=== PATIENT | female | born 1950 | race Caucasian/White ===

== ENCOUNTER → 2022-05-23 | Emergency (ER) | payer BC ==
[~2022-05-23] VITALS: Ht 172.7 cm; Wt 74.8 kg
[~2022-05-23] MED LIST: ACETAMINOPHEN 500 MG TABLET PO ONE; CEPH-548 PO; CEPH750C7 PO; FLUC150T47 PO; KETOROLAC TROMETHAMINE 60 MG/2 ML VIAL IM ONE; PHEN-801 PO
[2022-05-23 13:21] VITALS: BP_SYST 126
--- NOTE | 2022-05-23 15:34 | NUR ---
BROUGHT BACK TO BED #8 AND REPORT GIVEN TO THIEN
[2022-05-23 15:46] VITALS: BP_SYST 143
--- NOTE | 2022-05-23 15:46 | NUR ---
Pt in bed #8 coming from home ambulatory with steady gait. Pt c/o lower back pain x3 days. rates pain 8/10 intermittent. No trauma. Pt states she went yesterday to urgent care and was diagnosed wih a UTI. Pt states no prescriptions were given and has not taken any medication relieve pain. VSS. No chest pain and no sob. Denies n/v. NKA. No known medical conditions. Bed in lowest position.
--- NOTE | 2022-05-23 15:48 | NUR ---
Urine collected and sent to lab.
--- NOTE | 2022-05-23 16:10 | NUR ---
ER at bedside examining patient.
[2022-05-23 17:16] LABS: BILIRUBIN,URINE 1+ (NEGATIVE); BLOOD, URINE 2+ (NEGATIVE); COLOR,URINE YELLOW (YELLOW); GLUCOSE,URINE NEGATIVE (NEGATIVE); KETONES,URINE 2+ (NEGATIVE); LEUKOCYTE ESTERASE ,URINE 1+ (NEGATIVE); NITRITE, URINE NEGATIVE (NEGATIVE); PROTEIN URINE NEGATIVE (NEGATIVE); UROBILINOGEN,URINE 0.2 (0.2-1.0)
[2022-05-23 17:21] LABS: CLARITY/URINE HAZY (CLEAR)
[2022-05-23 18:04] LABS: BACTERIA,URINE FEW /HPF (None Seen); MUCUS,URINE None Seen /LPF (None Seen); YEAST,URINE Moderate /HPF (None Seen)
[2022-05-23 18:22] LABS: ANION GAP 8 (5-15); CALCIUM 8.9 mg/dL (8.4-11.0); CHLORIDE 99 mmol/L (98-107); CREATININE 0.67 mg/dL (0.55-1.30); GLUCOSE 92 mg/dL (70-99); POTASSIUM 3.5 mmol/L (3.5-5.1); SODIUM SERUM 134 mmol/L (136-145); UREA NITROGEN, BLOOD 14 mg/dL (8-21)
[2022-05-23 18:28] LABS: ALANINE AMINOTRANSFERASE 36 U/L (12-78); ASPARTATE AMINOTRANSFERASE 26 U/L (10-37); TOTAL BILIRUBIN 0.8 mg/dL (0.0-1.0)
[2022-05-23 18:30] LABS: BASOPHILS # (AUTO) 0.1 K/uL (0.0-0.2); BASOPHILS % (AUTO) 0.8 % (0.0-2.0); EOSINOPHILS # (AUTO) 0.1 K/uL (0.0-0.4); EOSINOPHILS % (AUTO) 0.8 % (0.0-4.0); HEMATOCRIT 35.6 % (36-48); HEMOGLOBIN 12.2 g/dL (12.0-16.0); LYMPHOCYTES # (AUTO) 2.1 K/uL (1.0-5.5); LYMPHOCYTES % (AUTO) 19.9 % (20.5-51.5); MEAN CORPUSCULAR HEMOGLOBIN 30 pg (27-31); MEAN CORPUSCULAR HGB CONC 34 % (32-36); MEAN CORPUSCULAR VOLUME 88 fL (79.0-98.0); MONOCYTES # (AUTO) 1.2 K/uL (0.0-1.0); MONOCYTES % (AUTO) 11.4 % (1.7-9.3); NEUTROPHILS % (AUTO) 67.1 % (40.0-70.0); PLATELET COUNT (AUTO) 223 K/uL (130-430); RED BLOOD CELL COUNT(AUTO) 4.07 MIL/uL (4.2-6.2); RED CELL DISTRIBUTION WIDTH 12.8 % (9.0-15.0); WHITE BLOOD COUNT (AUTO) 10.5 K/uL (4.8-10.8)
== END | disposition home or self-care (01) ==
LOC: SED 13:00
DX: N12 Tubulo-interstitial nephritis, not specified as acute or chronic (principal); M54.50 Low back pain, unspecified; R30.0 Dysuria; Z79.899 Other long term (current) drug therapy
CPT/HCPCS: 99283; 96372; 80053; 81000; 85025; 87086; 36415; 83605; J1885